=== PATIENT | female | born 1995 | race African-American/Black ===

== ENCOUNTER 2016-08-07 18:15 | Emergency (ER) | payer BC ==
[~2016-08-07] VITALS: Ht 162.6 cm; Wt 50.3 kg
[~2016-08-07 18:15] MED LIST: Birth control PO
--- NOTE | 2016-08-07 18:46 | NUR ---
Pt states she has had constipation x 2 weeks, tried a number of laxatives w/o relief, still able to flatulate. Minor pain on occasion, none currently. Pt denies CP, SOB, n/v, dizziness, no other complaints, no distress noted.
--- NOTE | 2016-08-07 19:15 | NUR ---
Received report from DERIK Quiñonez. Assumed care of pt at this time. Pt resting in position of comfort for self. Pt c/o constipation for approx 2 wks with no relief from OTC as well as prescribed medications. Pt no complaints of pain at this time. Pt resting in position of comfort for self, family at bedside. Awaiting further eval.
--- NOTE | 2016-08-07 19:38 | NUR ---
Dr. Reddy at bedside for MSE
[2016-08-07 20:19] LABS: *OCCULT BLOOD STOOL NEGATIVE (NEGATIVE)
--- NOTE | 2016-08-07 20:49 | NUR ---
Patient discharged home in stable conditon. Written and verbal after care instructions given. Patient verbalizes understanding of instructions.
[2016-08-07 20:50] VITALS: BP 115/89
== END 2016-08-07 20:50 | disposition home or self-care (01) ==
LOC: ER 18:16
DX: K59.00 Constipation, unspecified (principal); J45.909 Unspecified asthma, uncomplicated; Z88.1 Allergy status to other antibiotic agents
CPT/HCPCS: 82270; 99283; A4663

== ENCOUNTER 2016-12-28 02:42 | Emergency (ER) | payer BC ==
[~2016-12-28] VITALS: Ht 157.5 cm; Wt 49.9 kg
[2016-12-28] MEDS ORDERED: ESCITALOPRAM 10 MG TABLET (02:53)
[2016-12-28] MEDS ORDERED: IV NORMAL SALINE 1000 ML BAG IV ONE ×2 (03:15)
[2016-12-28] MEDS ORDERED: ONDANSETRON 4 MG/2 ML VIAL IV ONE (03:15)
[2016-12-28 03:29] LABS: BASOPHILS # (AUTO) 0.1 K/uL (0.0-8.0); BASOPHILS % (AUTO) 0.7 % (0.0-2.0); EOSINOPHILS # (AUTO) 0.2 K/uL (0.0-0.7); EOSINOPHILS % (AUTO) 2.3 % (0.0-7.0); HEMATOCRIT 44.3 % (37-47); HEMOGLOBIN 14.6 G/DL (12.0-16.0); LYMPHOCYTES # (AUTO) 1.5 K/UL (0.8-4.8); MEAN CORPUSCULAR HEMOGLOBIN 28.1 UUG (27.0-31.0); MEAN CORPUSCULAR HGB CONC 33 g/dL (32.0-37.0); MEAN CORPUSCULAR VOLUME 85.4 FL (81.0-99.0); MONOCYTES # (AUTO) 0.6 K/UL (0.1-1.30); MONOCYTES % (AUTO) 7.6 % (0.0-11.0); NEUTROPHILS # (AUTO) 5.4 K/UL (1.8-8.9); NEUTROPHILS % (AUTO) 70.4 % (38.5-71.5); PLATELET COUNT (AUTO) 241 K/UL (150-450); WHITE BLOOD COUNT (AUTO) 7.8 K/UL (4.0-11.2)
[2016-12-28] MEDS ORDERED: ONDANSETRON 4 MG/2 ML VIAL ONE (03:32)
[2016-12-28 03:35] LABS: CREATININE 0.9 mg/dL (0.6-1.3); POTASSIUM 3.7 mmol/L (3.5-5.1)
[2016-12-28 03:40] LABS: BILIRUBIN,TOTAL 0.2 mg/dL (0.2-1.0); MAGNESIUM 2.2 mg/dL (1.8-2.4); TOTAL PROTEIN, SERUM 9.1 g/dL (6.4-8.2)
[2016-12-28 05:25] LABS: *URINE HCG, QUAL NEGATIVE (NEGATIVE)
[2016-12-28 05:37] LABS: *AMPHETAMINE, URINE NEGATIVE (NEGATIVE); *BARBITURATE, URINE NEGATIVE (NEGATIVE); *CANNABINOID, URINE NEGATIVE (NEGATIVE); *COCCAINE, URINE NEGATIVE (NEGATIVE); *OPIATE, URINE NEGATIVE (NEGATIVE); *PHENCYCLIDINE SCREEN,URINE NEGATIVE (NEGATIVE)
[2016-12-28 05:50] VITALS: BP 110/60
--- NOTE | 2016-12-28 05:50 | NUR ---
Patient discharged to home in stable conditon. Written and verbal after care instructions given. Patient, and her mother, verbalize understanding of instructions.
== END 2016-12-28 05:51 | disposition home or self-care (01) ==
LOC: ER 02:45
DX: F10.129 Alcohol abuse with intoxication, unspecified (principal); E86.0 Dehydration; J45.909 Unspecified asthma, uncomplicated; Z88.0 Allergy status to penicillin
CPT/HCPCS: 36415; 70450; 70486; 71010; 72125; 80053; 80307; 83690; 83735; 84703 ×2; 85025; 96361; 96374; 99285; A4663; G0480; J2405; J7030 ×2